=== PATIENT | female | born 1970 | race Caucasian/White ===

== ENCOUNTER 2019-02-12 15:30 | Outpatient (RCR) | payer OTHER, SELFPAY ==
[2018-12-13 15:46] VITALS: BMI 27.1
--- NOTE | 2018-12-26 14:07 | HP.OTEVAL_ITS ---
Patient's Visit Information AUSTIN BOLANOS is a 48 year old F, referred to Occupational Therapy by Tye Soliz MD, with a diagnosis of left IF laceration. Date of Evaluation: 12/25/18 Occupational Therapist: Suzanne Sam, OTR/Tomy, CHT - Subjective Subjective: This 48 year old female was seen for intial OT eval following a left IF laceration. Pt sliced left IF open on door. went to ER on nov 10 and it was stitched closed. Pt has been doing her own exercises but is concerned with the ROM, pain and skin flap that opens with ROM. pt would like to return to her PLOF. - ADLs Dressing: Button shirt, Necklace, Earrings Fasteners: Tie shoes, Zippers, Snaps Eating: Cut food Toileting: Manage clothing Kitchen: Peel fruits & vegetables, Open bottle caps, Lift saucepan, Take dish out of oven, Load/unload cream cheese maker - Pain left IF 0 Pain Intensity Range: 0, 6 - ROM MP: right IF 0/80 left 0/22 PIP: right IF 0/100 left -10/60 DIP: right IF 0/68 left 0/15 - Edema PIP: right 7.5 left 7.9 - Sensation Index: right 2.83 left 3.22 volar, dorsal 3.61 - Hand/Wrist Evaluation Total Score of Pain & Functional Sections: 17 - Goals Goal:: pt will demo a increase in left environmental services attendant strength by 20# to increase ind with ADLs by d/c Goal:: pt will demo the ability to form a composite fist to hold small objects and coins without dropping them by d/c Goal:: pt will report pain no greater than 2/10 with full use of left hand for ADLs and IADLs by d/c Goal:: pt will demo the ability to manipulate coins, fasteners and zippers without difficulty by d/c Goal:: pt will demo understanding of scar mtg by end of 1st session to decrease scar adhesions - Rehabilitation General Assessment: pt currently 6 weeks post injury and demonstrating limited left IF ROM, pain and edmea- this has limited pts ind.with ADLs and IADLs. Pt would benefit from skilled OT services 1x week for 4 weeks for therapy to return pt to PLOF. Today pt was end on edema control preeti, desensitization, PROM and AROM ex. pt ed. to use K-tape over distal incison to assist with streatch of scar tissue. Rehabilitation Potential: Good - Anticipated Interventions Anticipated Interventions: A/AAROM/PROM, Strengthening, Edema Control, Scar Care, Triggerpoint Release, Desensitization, Modalities, Orthoses, Fine Motor Coord/Emil - Visit Plan Frequency: 1x/Week Duration: 4 Weeks TEXT: Thank you for the opportunity to evaluate your patient. For Medicare and Medicare HMO plans, please review the plan of care and approve it. It will need to be FAXED BACK to us at [phone] for Medicare purposes. Please let me know if there are questions or concerns regarding this plan of care. Physician Signature: Date:
--- NOTE | 2019-02-19 14:39 | HP.OTDCSUM ---
HP - OT D/C Summary It has been my pleasure to treat AUSTIN BOLANOS under orders from Tye Soliz MD, for the diagnosis of left IF laceration for a total of 4 visit(s). Please see the following information for a summary of their discharge status. - Objective Objective/Function: left IF pip -15/. DIP 40* flex. following left PIP -15 DIP 45* of flex - Goals Patient Goals: Regain Mobility, Regain Strength, Decrease Pain, Decrease Swelling/Stiffness, Improve Fine Motor Skills, Use Hand/Wrist/Arm Normally Again Goal:: pt will demo a increase in left production clerks supervisor strength by 20# to increase ind with ADLs by d/c Goal:: pt will demo the ability to form a composite fist to hold small objects and coins without dropping them by d/c Goal:: pt will report pain no greater than 2/10 with full use of left hand for ADLs and IADLs by d/c Goal:: pt will demo the ability to manipulate coins, fasteners and zippers without difficulty by d/c Goal:: pt will demo understanding of scar mtg by end of 1st session to decrease scar adhesions - Plan Plan: cont w/ prior POC - D/C Information If there are questions or concerns regarding this patient's occupational therapy, please fell free to call me at [phone]. Thank you for the referral of this patient. Sincerely, Suzanne Sam, OTR/L, CHT
== END 2019-02-12 19:00 | disposition home or self-care (01) ==
LOC: OT 15:30
PROVIDERS: Family Provider Family Medicine; PCP Family Medicine; Referring Provider Surgery; Visit Provider Surgery
DX: S61.211D Laceration without foreign body of left index finger without damage to nail, subsequent encounter (principal); M79.645 Pain in left finger(s); M79.89 Other specified soft tissue disorders; G90.512 Complex regional pain syndrome I of left upper limb
CPT/HCPCS: 97035; 97110; 97140; 97166; 97530

== ENCOUNTER → 2020-06-03 09:33 | Outpatient (CLI) | payer OTHER, SELFPAY ==
[2018-12-13 15:46] VITALS: BMI 27.1
[2020-06-03 10:26] LABS: Hemoglobin A1c 5.4 % (3.8-5.6)
[2020-06-03 10:29] LABS: Anion Gap 5 (5-15); BUN 12 mg/dL (7-18); BUN/Creat Ratio 15.9 RATIO (10-20); Calcium,Total 8.4 mg/dL (8.5-10.1); Chloride 114 mmol/L (98-107); Cholesterol 195 mg/dL (200); Creatinine, Serum 0.76 mg/dL (0.55-1.02); EST Glomerular Filtration Rate 86 mL/min (>60); Est Glom Filt Rate - Afr Amer 104 mL/min (>60); Glucose 90 mg/dL (74-106); High Density Lipoprotein 73 mg/dL; Sodium Level 139 mmol/L (136-145); Triglycerides 83 mg/dL; Very Low Density Lipoprotein 17 mg/dL (5-40)
== END ==
LOC: LAB 06-02 09:58 → LAB.FUTURE 06-02 11:56 → LAB 09:34
PROVIDERS: PCP Family Medicine; Referring Provider Family Medicine; Visit Provider Family Medicine
DX: F33.41 Major depressive disorder, recurrent, in partial remission (principal); K21.9 Gastro-esophageal reflux disease without esophagitis; R73.9 Hyperglycemia, unspecified; Z13.220 Encounter for screening for lipoid disorders
CPT/HCPCS: 36415; 80048; 80061; 83036

== ENCOUNTER 2024-06-20 09:57 | Day surgery (SDC) | payer BC, SELFPAY ==
--- NOTE | 2024-06-17 16:16 | PCM.HP.BLA ---
History and Physical Date of Admission: 06/20/24 HPI: The patient is a 53 year old female presenting for pre-operative visit. She is scheduled for hysteroscopy D&C with polyp resection and IUD insertion for abnormal uterine bleeding and endocervical polyp on 06/20/24. Procedure discussed along with risks, benefits and complications. Other alternatives discussed for management. Consent form signed? Yes. PAST MEDICAL HISTORY PAST MEDICAL HISTORY No date: Depression Comment: with anxiety, improved No date: GERD (gastroesophageal reflux disease) No date: Migraines No date: Osteoarthritis of multiple joints PAST SURGICAL HISTORY PAST SURGICAL HISTORY 2005: FOOT SURGERY HX 2004: TUBAL LIGATION HX CURRENT MEDICATIONS Current Outpatient Medications Medication Sig Dispense Refill ? rizatriptan (MAXALT) 10 mg tablet TAKE 1 TABLET BY MOUTH ONCE DAILY NEEDED, MAY REPEAT IN 2 HOURS IF NEEDED 6 tablet 2 ? miSOPROStol (CYTOTEC) 200 mcg tablet Use 2 tablets vaginally as directed. The night before the procedure and the morning of the procedure. 4 tablet 0 ? pantoprazole DR (PROTONIX) 20 mg tablet Take 1 tablet by mouth once daily. 90 tablet 3 ? sertraline (ZOLOFT) 100 mg tablet Take 1.5 tablets by mouth once daily. 135 tablet 3 ? cyclobenzaprine (FLEXERIL) 10 mg tablet Take 1 tablet by mouth two times a day as needed. 180 tablet 1 ? valACYclovir (VALTREX) 1 gram Take 1 tablet by mouth once daily. 90 tablet 1 No current facility-administered medications for this visit. ALLERGIES: Patient has no known allergies. PERSONAL HISTORY: SOCIAL HISTORY Social History Tobacco Use ? Smoking status: Former ? Smokeless tobacco: Never ? Tobacco comments: Quit age 25 Vaping Use ? Vaping Use: Never used Substance Use Topics ? Alcohol use: Yes Alcohol/week: 6.0 standard drinks of alcohol Types: 6 Standard drinks or equivalent per week ? Drug use: No FAMILY HISTORY: FAMILY HISTORY FAMILY HISTORY Problem Relation Age of Onset ? other (diverticulitis) Mother ? other (migraines) Mother ? Parkinsonism Mother ? Diabetes Father ? Hypertension Father ? other (SC) Father 65 ? other (diverticulitis) Father ? Coronary Artery Disease Father ? Multiple Sclerosis Sister ? Cancer Maternal Grandmother esophageal? ? other (neck pain) Maternal Grandmother stress, related to migraines ? Breast Cancer No Family History ? Colon Cancer No Family History REVIEW OF SYMPTOMS: GENERAL: denies fevers or chills ENDOCRINOLOGY: has not been on steroids Cardiology : denies palpitations or chest pain Respiratory: denies SOB or cough Hematology: denies history of prolonged bleeding or easy bruising or VTE Allergy: Denies history of personal or family history of allergy to anesthesia PHYSICAL EXAMINATION: VITALS: Last menstrual period 10/29/2023. GENERAL: The patient is well nourished, well hydrated in no acute distress. , The patient is oriented to time, place, and person. NECK: Supple. No lynphadenopathy, normal thyroid, no thyromegaly. LUNGS: Clear to auscultation bilaterally. no wheezes, rhonchi or rales HEART: Regular rate and rhythm, Normal heart sounds, and No murmurs or gallops EMB: Not done Pap and high-risk HPV are negative and up-to-date. Pelvic ultrasound performed on 05/22/2024: Indication Abnormal uterine bleeding Impression The uterus is anteverted and measures 100 mm x 44 mm x 48 mm. The myometrium is heterogeneous, echogenic but no obvious fibroids are observed. This finding is suggestive of adenomyosis. The endometrial thickness is 10.5 mm. There is a 29 mm x 17 mm x 8 mm cervical polyp noted. 1. Right lateral anterior wall intramural fibroid measures 8 mm x 7 mm x 7 mm. 2. Right lateral posterior wall intramural fibroid measures 12 mm x 10 mm x 11 mm. The right ovary measures 34 mm x 24 mm x 19 mm and contains a 19 mm x 20 mm x 19 mm unilocular simple cyst. O-RADS 2 The left ovary measures 27 mm x 14 mm x 15 mm. There is no free fluid visualized. Technique: Three dimensional imaging was created on a dedicated stand-alone 3D workstation with images created and archived, and supervised and reviewed by the interpreting physician utilizing images from a US Scan performed on 05/22/24. Recommendations Consider hysteroscopic evaluation and management of intracavitary lesion if clinically indicated. O-RADS 2 ovarian simple cyst, almost certainly benign. No follow up imaging is needed. Fibroid uterus. Clinical correlation is recommended. History Medical History Surgery: Tubal ligation Menstrual History LMP on 10/29/2023 Method Transabdominal, transvaginal, 3D ultrasound examination, Color Doppler examination. View: Adequate visualization Uterus Uterus: Visualized Uterus position: anteverted Description of uterine malformations: none Myometrium: heterogeneous, echogenic Endometrium: normal Cervix details: polyp noted Uterus length 100 mm Uterus width 48 mm Uterus height 44 mm Uterus Vol 111.1 cm? Endometrial thickness, total 10.5 mm Fibroids: Fibroids identified Uterine fibroid D1 8 mm Uterine fibroid D2 7 mm Uterine fibroid D3 7 mm Uterine fibroid mean 7.3 mm Uterine fibroid vol 0.201 cm? Uterine fibroids findings: Right lateral anterior wall. intramural Uterine fibroid D1 12 mm Uterine fibroid D2 10 mm Uterine fibroid D3 11 mm Uterine fibroid mean 11.1 mm Uterine fibroid vol 0.703 cm? Uterine fibroids findings: Right lateral posterior wall. intramural Polyps: Polyps identified Uterine polyp D1 29 mm Uterine polyp D2 17 mm Uterine polyp D3 8 mm Uterine polyp mean 18.0 mm Uterine polyp findings: Cervical Right Ovary Rt ovary: Visualized Rt ovary D1 34 mm Rt ovary D2 24 mm Rt ovary D3 19 mm Rt ovary Vol 8.0 cm? Rt ovarian cyst(s): Cysts identified Rt ovarian cyst D1 19 mm Rt ovarian cyst D2 20 mm Rt ovarian cyst D3 19 mm Rt ovarian cyst mean 19.3 mm Rt ovarian cyst vol 3.780 cm? Rt ovarian cyst findings: Unilocular simple cyst Left Ovary Lt ovary: Visualized Lt ovary morphology: premenopausal normal follicular Lt ovary D1 27 mm Lt ovary D2 14 mm Lt ovary D3 15 mm Lt ovary Vol 2.9 cm? Lt ovarian cyst(s): No cysts identified Cul de Sac Visualized. no free fluid visualized Procedure To characterize the cervical polyp, three dimensional imaging was created on a dedicated stand-alone 3D workstation with images created and archived, and supervised and reviewed by the interpreting physician utilizing images from an ultrasound scan performed today. IMPRESSION: Abnormal uterine bleeding and endocervical polyp PLAN: The risks/benefits/alternatives and personal involved for the planned hysteroscopy D&C with polyp resection and IUD insertion were reviewed with the patient. Her questions were answered to her satisfaction and she desires to proceed. Consent was signed. I reviewed with her postop instructions and expectations. I have reviewed and updated past medical and surgical history, medications and allergies Assessment & Plan Assessment/Plan (1) Abnormal uterine bleeding (AUB): (2) Endometrial polyp:
[2024-06-20] VITALS (10 sets, daily range): BP systolic 129–140; BP diastolic 70–91; PULSE 72–86; RESP 16–18; TEMP 36.1–36.7; O2SAT 94–100; BMI 33.0
[2024-06-20] MEDS: Lactated Ringers 1,000 ML 15 ML IV (10:20)
[2024-06-20] MEDS: Ketorolac 30 MG/ML Syringe IV (10:20)
[2024-06-20] MEDS: Acetaminophen 500 MG Tablet 1000 MG PO (10:20)
--- NOTE | 2024-06-20 11:02 | PCM.PRE.AN2 ---
ASA Classification* ASA Classification ASA Classification: 2 Assessment & Plan Anesthesia* Anesthesia Assessment Anesthesia Assessment: Discussed sedation and/or anesthesia options, risks, benefits, and alternatives with patient/parents/legal guardian/POA. Questions invited. The patient/parents/legal guardian/POA seems to understand and agrees to proceed with anesthesia plan. Reviewed the physical assessment, medical history, allergy history and patient home medications list prior to surgery/procedure/anesthetic and documented any changes. Performed airway and anesthesia risk assessments. Anesthesia Type Anesthesia Type: MAC History Source History Obtained from:: Patient and Chart Anesthesia Focused Assessment* Temperature: 98.1 F Pulse Rate: 82 Blood Pressure: 134/85 Respiratory Rate: 18 Pulse Ox: 100 Oxygen Delivery Method: Room Air Airway Assessment Mouth opens: >3 cm Mallampati Score: I Teeth Condition: Caps/Crowns (Right upper molar crown is tight.) Neck Range of motion (ROM): Full ROM Focused Labs Anesthesia Preop lab: CBC CHEMISTRY Potassium 4.0 mmol/L (3.5-5.1) 06/03/20 09:35 Sodium 139 mmol/L (136-145) 06/03/20 09:35 BUN 12 mg/dL (7-18) 06/03/20 09:35 Creatinine 0.76 mg/dL (0.55-1.02) 06/03/20 09:35 Glucose 90 mg/dL (74-106) 06/03/20 09:35 COAG Pre-Assessment Diagnosis/Proposed Procedure Planned Operative Procedure(s): HYSTEROSCOPY DILATION AND CURETTAGE WITH POLYP RESECTION AND LILETTA IUD INSERTION Anesthesia History Anesthesia History - personnel generalist manager: Anesthesia History - personnel generalist manager Hx Hospitalization No 06/12/24 12:06 Any Problems With Anesthesia No 06/12/24 12:06 Cholinesterase deficiency No 06/12/24 12:06 You/Your Family Experience No 06/12/24 12:06 fever (hyperthermia) with Relationship Recent Exposure to Contagious No 06/20/24 10:25 Disease Does patient have nerve No 06/12/24 12:06 stimulator Patient instructed to have device shut off --Does patient have Pacemaker No 06/20/24 10:25 or ICD? When Was Last Pacemaker Check QUESTION #4 FULL TEXT: You/Your Family Experience fever (hyperthermia) with Anesthesia Last Oral Intake Last Oral intake: Last Oral Intake NPO since 00:00 06/20/24 10:25 Meds taken in AM with sips of Yes 06/20/24 10:25 water? Meds patient instructed to ativan 06/20/24 10:25 take am of surgery PONV PONV - personnel generalist manager: PONV - personnel generalist manager Female Yes 06/12/24 12:06 HX of Motion Sickness No 06/12/24 12:06 HX of N/V After Surgery Yes 06/12/24 12:06 Non-Smoker Yes 06/12/24 12:06 Duration of Surgery greater No 06/12/24 12:06 than 60 minutes Number of Risk Factors 3 06/12/24 12:06 PONV Score Moderate Risk 06/12/24 12:06 Height & Weight Height & Weight: Anesthesia: Height & Weight Height 5 ft 2 in 06/20/24 10:25 Weight: 82.1 kg 06/20/24 10:25 Body Mass Index (BMI) 33.0 06/20/24 10:25 Respiratory Assessment Respiratory Assessment - personnel generalist manager: Respiratory Tract Infection Hx - personnel generalist manager Hx Respiratory Tract Infection No 06/12/24 12:06 STOP Sleep Apnea STOP Sleep Apnea - personnel generalist manager: STOP Sleep Apnea - personnel generalist manager Hx Hypertension No 06/12/24 12:06 Hx Sleep Apnea No 06/12/24 12:06 CPAP BIPAP Do you snore loudly (louder No 06/12/24 12:06 than talking or can be heard Do you often feel tired/ No 06/12/24 12:06 fatigued/ sleepy during daytime? Has anyone observed you stop No 06/12/24 12:06 breathing during sleep? STOP Results Negative 06/12/24 12:06 QUESTION #5 FULL TEXT : Do you snore loudly (louder than talking or can be heard through closed doors)? 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 Specify any problems Hx of Preganancy in last 3 No 06/12/24 12:06 Months Nurse Filling Out Transfusion [id number] 06/12/24 12:06 & Questions: Date: 06/12/24 06/12/24 12:06 Time: 12:10 06/12/24 12:06 Patient unable to answer at this time (ie. confused, unrespo /Reproduction History /Reproductive History - personnel generalist manager: /Reproductive Hx- personnel generalist manager Hx Now Gestational Age (in weeks): EDC: Hx Hx Para Hx Section SAB Active Medications Active Medications: Current Medications Generic Name Dose Route Start Last Admin Trade Name Freq PRN Reason Stop Dose Admin Acetaminophen 1,000 mg 06/20/24 11:55 06/20/24 10:20 Acetaminophen 500 Mg Tablet PO 06/20/24 11:56 1,000 mg PREOP ONE Administration Lactated Ringer's 1,000 mls @ 15 mls/hr 06/20/24 10:00 06/20/24 10:20 IV 15 mls/hr .Q48H KATIA Administration Ketorolac Tromethamine 30 mg 06/20/24 11:55 06/20/24 10:20 Ketorolac 30 Mg/Ml Syringe IV 06/20/24 11:56 30 mg PREOP ONE Administration Levonorgestrel 1 each 06/20/24 11:55 Levonorgestrel Iud (Liletta) INTRA-UTER 06/20/24 11:56 X1 ONE PFSH Medical History Wears glasses Back pain Easy bruising Migraine headache Bulging of cervical intervertebral disc GERD (gastroesophageal reflux disease) Osteoarthritis Frequent headaches Anxiety and depression Arthritis Home Medications ?Medication ?Instructions ?Recorded ?Last Taken ?Type cyclobenzaprine 10 mg tablet 10 mg PO HS 12/13/18 06/19/24 History famotidine 20 mg tablet (Acid 20 mg PO PRN 12/13/18 06/19/24 History Ditching Machine Engineer (famotidine)) rizatriptan 10 mg tablet 10 mg PO PRN 12/13/18 Unknown History sertraline 100 mg tablet 100 mg PO DAILY 12/13/18 06/19/24 History valacyclovir 1 gram tablet 1,000 mg PO MONTHLY 12/13/18 Unknown History (Valtrex) misoprostol 200 mcg tablet 400 mcg vaginal UD 06/12/24 Unknown History lorazepam 0.5 mg tablet 0.5 mg PO X1 06/20/24 06/20/24 History Allergy/AdvReac Type Severity Reaction Status Date / Time No Known Allergies Allergy Verified 06/20/24 10:16 Family History Father Arthritis Diabetes Hypertension Bowel disease Surgical History History of toe surgery History of tubal ligation Social History Smoking Status: Former smoker Review of Systems (Anesthesia) ROS Narrative System reviewed and no additional complaints, except as documented.
[2024-06-20] MEDS: 0.9% Normal Saline (Pres. free 10 ML Vial (11:50)
[2024-06-20] MEDS: Vasopressin 20 UNITS/ML Vial (11:50)
[2024-06-20] MEDS: Levonorgestrel IUD (Liletta) 1 EACH INTRA-UTER (11:51)
--- NOTE | 2024-06-20 11:55 | EMB_PTH ---
PATIENT: AUSTIN BOLANOS LOC: [facility] [place] U[place][id number] AGE/SX: 53/F ROOM: RE06/20/[address]: Dr. Delmis Blanc MD : 1970 BED: DIS: 06/20/2024 SPEC #: [id number] RECD: 06/20/24 12:57 STATUS: EMMANUELLE BARNARD #: [id number] CHERYL: 06/20/24 11:[address]: Delmis Blanc DEPT: SURGICAL PATHOLOGY RECD BY: Sagar Richard ENTERED: 06/20/24 13:31 SP TYPE: ENDOM BX/C OTHR DR: Dr. Fidel Black MD Tissues: Endometrium, NOS Procedures: Surgery Specimen Level IV HEADER OPERATION: Hysteroscopy, D&C, polypectomy, IUD insertion PRE-OP DIAGNOSIS: Abnormal uterine bleeding, endometrial polyp TISSUE SUBMITTED: Endometrial curettings and polyp MICROSCOPIC DIAGNOSIS Endometrial curettings and polyp: Polypoid fragments of weakly proliferative inactive endometrium. Fragments of benign myometrium. AM. 06/23/2024 MICROSCOPIC DESCRIPTION Slides are reviewed. GROSS DESCRIPTION Received in fixative is one container labeled with the patient's name and designated Endometrial curettings and polyp. The specimen consists of multiple fragments of lopez-pink soft tissue mixed with polypoid tissue that in aggregate measure 5.0 x 3.0 x 0.3 cm. The specimen is totally submitted in two cassettes. 06/20/2024 TC:5 CPT:61448
--- NOTE | 2024-06-20 12:07 | OP.PCM_ITS ---
Problems Associated Problem List Diagnoses (1) Endometrial polyp: (2) Abnormal uterine bleeding (AUB): (3) Encounter for IUD insertion: Report of Operation Date of Procedure: 06/20/24 Pre-Operative Diagnosis: AUB, endometrial polyp Post-Operative Diagnosis: same + IUD insertion Surgery/Procedure Performed:: Hysteroscopy D&C with polyp resection and Liletta IUD insertion Description of Surgical Findings:: large lower uterine segment vs endocervical polyp, normal cervix and vagina, normal tubal ostia Surgeon: Delmis Blanc calender operator helper: None Type of Anesthesia: MAC/Supplemental/Local Anesthesiologist: Riccardo Schaeffer Special Medications: none Specimen's removed: endometrial curettings and polyp Drains: none Estimated Blood Loss (mL): 10 Fluids Replaced: 500 Description of Procedure: The patient was taken to the OR where she was prepped and draped in dorsal lithotomy position. The weighted speculum was placed in the vagina and the anterior lip of the cervix was grasped with a single-tooth tenaculum. A paracervical block was administered with [1% lidocaine with 1-100,000 epinephrine solution]. The cervix was dilated serially with Hegar dilators. I attempted to place the hysteroscope in and visualized a large polyp in the endocervical canal that seem to be attached in the lower uterine segment but preventing hysteroscope advancement. I used the polyp forceps to remove large portion of this polyp. This allowed the scope to then be placed entirely into the uterus. The Symphion] hysteroscope was placed into the uterine cavity and the above findings were noted. Bilateral tubal ostia [were] identified. The resection device was readied and inserted. The remaining portion of the polyp was removed and a visual D&C was done of the endometrial cavity. No other focal endometrium abnormalities were noted.. The instruments were removed from the vagina. The specimen was handed off and sent to pathology. All sponge and needle counts were correct. Vaginal sweep was performed by me. The patient was awakened and taken to the recovery room in stable condition. Hysteroscopic fluid deficit was calculated to be 800 cc. Grafts/Implants Used: None Procedure Start Time: 11:44 Procedure Stop Time: 12:05 Complications none Admit VTE Documentation VTE Present on Admission: No VTE Mechan Device Prophylaxis: SCD's VTE Pharm Prophylaxis ordered?: No
--- NOTE | 2024-06-20 12:11 | PCM.POST.ANE ---
Anesthesia: Postop Eval I Current Vital Signs Temperature: 96.9 F Pulse Rate: 86 Blood Pressure: 136/86 Respiratory Rate: 16 Pulse Ox: 94 Oxygen Delivery Method: Room Air Assessment Airway patent: Yes Spontaneous unlabored respirations: Yes Mental status: Awake and Calm nausea: No Vomiting: No Anesthesia Complication: No Fluid Hydration Crystalloid volume administer (ml): 500 Total IV fluid infused: 500 Progress Note Anesthesia document: Postop Eval 1 completed: Yes
--- NOTE | 2024-06-20 12:15 | PCM.DC ---
Discharge Instructions Diet Discharge Diet: No restrictions Activity Return to work on:: 06/23/24 May resume sexual activity in: 1 week Lifting Restrictions: none Dressing / Incision Call your doctor if your incision/area has: Sudden Increased Bleeding and Foul Smelling Discharge Call your doctor if you observe: Fever of 101 or Higher and Using more than 1 pad per hour (for 2 hrs in a row) Follow Up Care Please Follow Up With: Delmis Blanc MD When: We will contact you with the pathology results, you do not have to schedule a postop appointment. Call [phone] or send a [employer] message with any concerns. Test Results: Test results from this visit will be discussed in further detail at your follow-up appointment, if applicable. Discharge Plan Admission Primary Reason for Your Visit: Hysteroscopy D&C with polyp resection and Liletta IUD insertion Attending Provider: Delmis Blanc Primary Care Provider: Fidel Black Instructions Print Language: Vietnamese Discharge Orders/Prescriptions Prescriptions: No Action cyclobenzaprine 10 mg tablet 10 mg PO HS sertraline 100 mg tablet 100 mg PO DAILY valacyclovir [Valtrex] 1 gram tablet 1,000 mg PO MONTHLY rizatriptan 10 mg tablet 10 mg PO PRN famotidine [Acid Associate Marketing Manager (famotidine)] 20 mg tablet 20 mg PO PRN misoprostol 200 mcg tablet 400 mcg vaginal UD Patient Comments: FOR MORNING OF SURGERY 06/20/24 lorazepam 0.5 mg tablet 0.5 mg PO X1 Referrals / Follow Up: Fidel Black MD [Primary Care Provider] - Disposition Disposition (needs filled in before D/C Order can be placed): Home, Self Care
--- NOTE | 2024-06-20 12:54 | POSTOPAN2_ITS ---
Anesthesia Postop Eval I Sum Postop Eval Completion status Anesthesia document: Postop Eval 1 completed: Yes Anesthesia Postop Eval I Summary Anesthesia Postop Eval I Summary: Anesthesia Postop Eval I: Assessment Summary Airway patent Yes 06/20/24 12:26 GARMENT [email or web address] Spontaneous unlabored Yes 06/20/24 12:26 GARMENT [email or web address] respirations Mental status Awake,Calm 06/20/24 12:26 GARMENT [email or web address] nausea No 06/20/24 12:26 GARMENT [email or web address] Vomiting No 06/20/24 12:26 GARMENT [email or web address] Anesthesia Postop Eval I: Fluid Summary Crystalloid volume administer 500 06/20/24 12:26 GARMENT [email or web address] (ml) Colloids volume administered ( ml) Blood Product volume administered (ml) Total IV fluid infused 500 06/20/24 12:26 GARMENT [email or web address] Anesthesia Postop Eval I: Summary Notes Anesthesia Complication No 06/20/24 12:26 GARMENT [email or web address].[email or web address] Anesthesia Complication Comment: Post-operative progress note Anesthesia: Postop Eval II Evaluation Mental status: Awake Pain Level: 2 nausea: No Vomiting: No
--- NOTE | 2024-06-20 12:54 | PCM.POSTANE2 ---
Anesthesia Postop Eval I Sum Postop Eval Completion status Anesthesia document: Postop Eval 1 completed: Yes Anesthesia Postop Eval I Summary Anesthesia Postop Eval I Summary: Anesthesia Postop Eval I: Assessment Summary Airway patent Yes 06/20/24 12:26 GRILL [email or web address] Spontaneous unlabored Yes 06/20/24 12:26 GRILL ATTENDANT.[email or web address] respirations Mental status Awake,Calm 06/20/24 12:26 GRILL [email or web address] nausea No 06/20/24 12:26 GRILL [email or web address] Vomiting No 06/20/24 12:26 GRILL [email or web address] Anesthesia Postop Eval I: Fluid Summary Crystalloid volume administer 500 06/20/24 12:26 [email or web address] [email or web address] (ml) Colloids volume administered ( ml) Blood Product volume administered (ml) Total IV fluid infused 500 06/20/24 12:26 GRILL [email or web address] Anesthesia Postop Eval I: Summary Notes Anesthesia Complication No 06/20/24 12:26 GRILL ATTENDANT.[email or web address] Anesthesia Complication Comment: Post-operative progress note Anesthesia: Postop Eval II Evaluation Mental status: Awake Pain Level: 2 nausea: No Vomiting: No
== END 2024-06-20 13:55 | disposition home or self-care (01) ==
LOC: SDC 09:58 → AC 10:00
PROVIDERS: PCP Family Medicine; Referring Provider Obstetrics & Gynecology; Visit Provider Obstetrics & Gynecology
PROC: 0UB98ZZ Excision of Uterus, Via Natural or Artificial Opening Endoscopic (ICD-10-PCS; CPT 58558; principal; 2024-06-20 11:40)
DX: N93.9 Abnormal uterine and vaginal bleeding, unspecified (principal); N84.0 Polyp of corpus uteri; F41.9 Anxiety disorder, unspecified; F32.A Depression, unspecified; Z87.891 Personal history of nicotine dependence; Z79.899 Other long term (current) drug therapy; Z30.430 Encounter for insertion of intrauterine contraceptive device
CPT/HCPCS: 58558; 58300; 00952; 88305; J7120; J2405; J3490